=== PATIENT | male | born 1965 | race Caucasian/White ===

== ENCOUNTER 2016-08-11 19:02 | Emergency (ER) | payer BC ==
[2016-08-11] MEDS ORDERED: ACETAMINOPHEN 325 MG TABLET ONE (21:06)
[2016-08-11] MEDS ORDERED: IBUPROFEN 600 MG TABLET ONE (21:06)
[2016-08-11] MEDS ORDERED: AMOX 875 MG/CLAV 125 MG 1 EACH TABLET ONE (21:06)
== END 2016-08-11 21:38 | disposition home or self-care (01) ==
LOC: ED 19:02
DX: S61.451A Open bite of right hand, initial encounter (principal); F17.210 Nicotine dependence, cigarettes, uncomplicated; W55.01XA Bitten by cat, initial encounter; Y92.9 Unspecified place or not applicable
CPT/HCPCS: 99283 ×2; A9270 ×3